=== PATIENT | female | born 1985 | race Caucasian/White ===

== ENCOUNTER 2017-01-03 13:07 | Emergency (ER) | payer OTHER ==
[~2017-01-03] VITALS: Ht 162.6 cm; Wt 117.5 kg
[2017-01-03 13:11] VITALS: BP 143/90
--- NOTE | 2017-01-03 16:44 | NUR ---
PT TAKEN TO BED 4.
--- NOTE | 2017-01-03 16:50 | NUR ---
Patient being evaluated by physician at bedside.
[2017-01-03] MEDS: NACL 0.9% 1,000 ML IV ONE (17:00)
--- NOTE | 2017-01-03 17:00 | NUR ---
PATIENT PRESENTS TO ED WITH DIZZINESS . PT STATES DENIES TRAUMA] . DENIES N/V/D; SKIN IS PINK/WARM/DRY; AAOX4 WITH EVEN AND STEADY GAIT; LUNGS CLEAR BL; HR EVEN AND REGULAR; PT DENIES ANY FEVER, CP, SOB, OR COUGH AT THIS TIME; PATIENT STATES PAIN OF 0/10 AT THIS TIME; VSS; PATIENT POSITIONED FOR COMFORT; HOB ELEVATED; BEDRAILS UP X2; BED DOWN. ER MD MADE AWARE OF PT STATUS.
[2017-01-03 17:55] LABS: BASOPHILS # (AUTO) 0.1 K/uL (0.00-0.22); BASOPHILS % (AUTO) 1.4 % (0.0-2.0); EOSINOPHILS # (AUTO) 0.2 K/uL (0-0.4); EOSINOPHILS % (AUTO) 2.1 % (0.0-4.0); HEMATOCRIT 40.4 % (36-48); HEMOGLOBIN 13.2 g/dL (12.0-16.0); LYMPHOCYTES # (AUTO) 2.8 K/uL (2.5-16.5); LYMPHOCYTES % (AUTO) 29.6 % (20.5-51.1); MEAN CORPUSCULAR HEMOGLOBIN 26 pg (27-31); MEAN CORPUSCULAR HGB CONC 33 g/dL (33-37); MEAN CORPUSCULAR VOLUME 80 fL (80-94); MONOCYTES # (AUTO) 0.5 K/uL (0.8-1.0); MONOCYTES % (AUTO) 4.8 % (1.7-9.3); NEUTROPHILS % (AUTO) 62.1 % (42.2-75.2); PLATELET COUNT (AUTO) 276 K/uL (140-450); RED BLOOD CELL COUNT(AUTO) 5.04 MIL/uL (4.20-5.40); RED CELL DISTRIBUTION WIDTH 14.8 % (11.6-13.7); WHITE BLOOD COUNT (AUTO) 9.6 K/uL (4.8-10.8)
[2017-01-03] MEDS: KETOROLAC 30 MG/ML VIAL IVP ONE (18:01)
[2017-01-03 18:16] LABS: ALBUMIN 3.8 g/dL (3.4-5.0); ANION GAP 11.6 (8-16); CARBON DIOXIDE 30.6 mmol/L (21-32); CREATININE 0.6 mg/dL (0.6-1.3); POTASSIUM 4.2 mmol/L (3.5-5.1); TOTAL BILIRUBIN 0.3 mg/dL (0.0-1.0); TOTAL PROTEIN, SERUM 8.5 g/dL (6.4-8.2)
[2017-01-03 18:18] LABS: PARTIAL THROMBOPLASTIN TIME 29.4 secs (22-35.6); PROTHROMBIN TIME 9.9 secs (10.8-13.4)
--- NOTE | 2017-01-03 19:03 | NUR ---
Patient discharged with v/s stable. Written and verbal after care instructions given and explained. Patient alert, oriented and verbalized understanding of instructions. Ambulatory with steady gait. All questions addressed prior to discharge. ID band removed. Patient advised to follow up with PMD. Rx of MOTRIN/MECLIZINE given. Patient educated on indication of medication including possible reaction and side effects. Opportunity to ask questions provided and answered.
[2017-01-03 19:04] VITALS: BP 138/81
== END 2017-01-03 19:03 | disposition home or self-care (01) ==
LOC: MED 13:07
DX: R07.89 Other chest pain (principal); R42 Dizziness and giddiness
CPT/HCPCS: 36415; 70450; 71010; 80053; 84484; 85025; 85610; 85730; 93005; 96361; 96374; 99285; J1885; J7030

== ENCOUNTER 2019-03-03 06:51 | Inpatient (IN) | payer OTHER ==
[~2019-03-03] VITALS: Ht 160 cm; Wt 112.9 kg
[2019-03-03 07:00] VITALS: BP 128/81
--- NOTE | 2019-03-03 07:00 | NUR ---
TO BED # 09 AMBULATORY
--- NOTE | 2019-03-03 07:07 | NUR ---
33 Y FEMALE C/O EPIGASTRIC PAIN FOR 10 DAYS WITH N/V. PATIENT STATES SHE SAW HER PCP ON TUESDAY, US WAS PERFORMED, GALLSTONES PRESENT. PATIENT STATES SHE CANT TAKE THE PAIN, 05/03. VSS. AA0X4. BED IS DOWN, LOCKED, BED RAIL X 1, ERMD TO SEE PT.
--- NOTE | 2019-03-03 07:13 | NUR ---
PT UNABLE TO GIVE URINE AT THIS TIME
--- NOTE | 2019-03-03 07:35 | NUR ---
dr magdaleno at bedside
[2019-03-03] MEDS ORDERED: ONDANSETRON 4 MG/2 ML VIAL IVP ONE (07:40)
[2019-03-03] MEDS ORDERED: MORPHINE SULFATE 4 MG/ML SYR IVP ONE ×2 (07:40→09:55)
[2019-03-03] MEDS ORDERED: NACL 0.9% 1,000 ML IV ONE (07:40)
--- NOTE | 2019-03-03 08:11 | NUR ---
us at bedside
[2019-03-03 08:18] LABS: BASOPHILS # (AUTO) 0.1 K/uL (0.00-0.22); BASOPHILS % (AUTO) 0.7 % (0.0-2.0); EOSINOPHILS # (AUTO) 0.2 K/uL (0-0.4); EOSINOPHILS % (AUTO) 2.3 % (0.0-4.0); HEMATOCRIT 31.8 % (36-48); HEMOGLOBIN 9.9 g/dL (12.0-16.0); LYMPHOCYTES # (AUTO) 1.8 K/uL (2.5-16.5); LYMPHOCYTES % (AUTO) 22.7 % (20.5-51.1); MEAN CORPUSCULAR HEMOGLOBIN 21 pg (27-31); MEAN CORPUSCULAR HGB CONC 31 g/dL (33-37); MEAN CORPUSCULAR VOLUME 68.1 fL (80-94); MONOCYTES # (AUTO) 0.4 K/uL (0.8-1.0); MONOCYTES % (AUTO) 4.8 % (1.7-9.3); NEUTROPHILS # (AUTO) 5.5 K/uL (1.8-7.7); NEUTROPHILS % (AUTO) 69.5 % (42.2-75.2); PLATELET COUNT (AUTO) 367 K/uL (140-450); RED BLOOD CELL COUNT(AUTO) 4.67 MIL/uL (4.20-5.40); RED CELL DISTRIBUTION WIDTH 17.6 % (11.6-13.7); WHITE BLOOD COUNT (AUTO) 7.9 K/uL (4.8-10.8)
[2019-03-03 08:30] LABS: ANION GAP 14.3 (8-16); APPEARANCE,URINE CLOUDY (CLEAR); BILIRUBIN,URINE NEGATIVE (NEGATIVE); BLOOD, URINE 1+ (NEGATIVE); CARBON DIOXIDE 27.3 mmol/L (21-32); COLOR,URINE YELLOW (YELLOW); CREATININE 0.8 mg/dL (0.6-1.3); LEUKOCYTE ESTERASE ,URINE NEGATIVE (NEGATIVE); NITRITE, URINE NEGATIVE (NEGATIVE); PH,URINE 7.5 (5.0-9.0); POTASSIUM 3.6 mmol/L (3.5-5.1); UGLUCOSE NEGATIVE (NEGATIVE)
[2019-03-03 08:36] LABS: TOTAL BILIRUBIN 0.4 mg/dL (0.0-1.0)
[2019-03-03 09:02] LABS: RBC,URINE 0-5 /HPF (0-5); WBC,URINE 0-5 /HPF (0-5)
--- NOTE | 2019-03-03 09:07 | NUR ---
PT SLEEPING. LIGHTS TURNED OFF FOR COMFORT. RR EVEN AND UNLABORED.
--- NOTE | 2019-03-03 10:00 | NUR ---
pt c/o 05/03 pain. additional 4 mg morphine ivp administered
--- NOTE | 2019-03-03 10:15 | NUR ---
RECEIVED REPORT FROM ER NURSE. PATIENT IS STABLE UPON ENDORSEMENT. PATIENT IS ON ROOM AIR, NO S/S OF RESPIRATORY DISTRESS. ADMIT TO FLOOR VITAL SIGNS ARE PULSE OX: 100% RA, MS 71, TEMP 97.0, BP 126/64. MRSA SWAB COLLECTED FROM NARES. ADMISSION ASSESSMENT HAS BEEN IMPLEMENTED. WILL CONTINUE TO MONITOR
--- NOTE | 2019-03-03 10:20 | NUR ---
Patient will be admitted to care of [facility]. Admited to [facility]. Will go to room 119A. Belongings list completed. Report to RICH MOE.
[2019-03-03] MEDS ORDERED: ALBUTEROL 0.083% 2.5 MG/3 ML NEBU INH PRN (10:50)
[2019-03-03] MEDS ORDERED: ACETAMINOPHEN 325 MG TAB PO PRN (10:50)
[2019-03-03] MEDS ORDERED: POTASSIUM CHLORIDE 10 MEQ TABER PO PRN (10:50)
[2019-03-03] MEDS ORDERED: HYDROcodone/APAP 5/325 MG 1 TAB TAB PO PRN (10:50)
[2019-03-03] MEDS ORDERED: guaiFENesin DM 200/20 MG-10 ML 10 ML UDC PO PRN (10:50)
[2019-03-03] MEDS ORDERED: diphenhydrAMINE 50 MG/ML VIAL IVP PRN (10:50)
[2019-03-03] MEDS ORDERED: ZOLPIDEM 5 MG TAB PO PRN (10:50)
[2019-03-03] MEDS ORDERED: IPRATROPIUM 0.02% 0.5 MG/2.5 ML NEBU INH PRN (10:50)
[2019-03-03] MEDS ORDERED: MORPHINE SULFATE 4 MG/ML SYR IVP PRN (10:50)
[2019-03-03] MEDS ORDERED: DOCUSATE SODIUM 250 MG GELCAP PO PRN (10:50)
[2019-03-03] MEDS ORDERED: MAGNESIUM OXIDE 400 MG TAB PO PRN (10:50)
[2019-03-03] MEDS ORDERED: ACETAMINOPHEN 650 MG SUPP RC PRN (10:50)
[2019-03-03] MEDS ORDERED: SODIUM PHOSPHATE 118 ML ENEM RC PRN (10:50)
[2019-03-03] MEDS ORDERED: MAG SULF 2000 MG/WATER PREMIX 50 ML IV PRN (10:50)
[2019-03-03] MEDS ORDERED: LORazepam 2 MG/ML VIAL IVP PRN (10:50)
[2019-03-03] MEDS ORDERED: BISACODYL 10 MG SUPP RC PRN (10:50)
[2019-03-03] MEDS ORDERED: MORPHINE SULFATE 2 MG/ML SYR IVP PRN (10:50)
[2019-03-03] MEDS ORDERED: cloNIDine 0.1 MG TAB PO PRN (10:50)
[2019-03-03] MEDS ORDERED: POTASSIUM CHLORIDE 40 MEQ, LIDOCAINE 1% 25 MG in NACL 0.9% 250 ML IV PRN (10:50)
[2019-03-03] MEDS ORDERED: ALUMINUM HYD/MAG/SIMETHICONE 30 ML UDC PO PRN (10:50)
[2019-03-03] MEDS: NACL 0.9% 1,000 ML IV SCH (12:00)
[2019-03-03] MEDS: FAMOTIDINE 20 MG/2 ML VIAL IV SCH (12:23)
[2019-03-03] MEDS: ONDANSETRON 4 MG/2 ML VIAL IVP PRN ×2 (12:24→21:10)
[2019-03-03] MEDS: HYDROcodone/APAP 5/325 MG 1 TAB TAB PO PRN ×2 (12:24→21:07)
--- NOTE | 2019-03-03 12:30 | NUR ---
ADMINISTERED PAIN MEDICATION FOR PAIN 01/01. PATIENTS VITAL SIGNS WERE WNL PRIOR TO ADMINISTRATION. WILL REASSESS IN ONE HOUR AND CONTINUE TO MONITOR. PATIENT IS RESTING IN BED WITH NO S/S OF RESPIRATORY DISTRESS. FAMILY IS AT BEDSIDE.
--- NOTE | 2019-03-03 14:13 | NUR ---
WAS INFORMED THAT PATIENT HAS A NUCLEAR SCAN SET TO TAKE PLACE AROUND 6PM. INFORMED PATIENT THAT SHE IS TO BE NPO UNTIL THE SCAN IS COMPLETE. INFORMED PATIENT THAT MORPHINE SHOULD BE WITHHELD UNTIL AFTER THE SCAN. PATIENT VERBALIZED UNDERSTANDING. PATIENT IS RESTING QUIETLY WITH FAMILY AT BEDSIDE.
--- NOTE | 2019-03-03 14:20 | NUR ---
PATIENT TO BE TAKEN FOR CT ABD/PELVIS WITHOUT CONTRAST. WILL CONTINUE TO MONITOR WHEN PATIENT RETURNS ON UNIT.
--- NOTE | 2019-03-03 14:35 | NUR ---
PATIENT BACK ON UNIT FROM CT SCAN. NO DISTRESS NOTED. WILL CONTINUE TO MONITOR.
[2019-03-03 16:00] VITALS: BP 119/64
--- NOTE | 2019-03-03 16:14 | NUR ---
PATIENT IS SLEEPING WITH FAMILY AT BEDSIDE. NO S/S OF RESPIRATORY DISTRESS.
--- NOTE | 2019-03-03 19:10 | NUR ---
RECEIVED REPORT FROM AM NURSE, PATIENT IS IN HIDA SCAN.
--- NOTE | 2019-03-03 19:10 | NUR ---
ENDORSED PATIENT TO SENIOR GAMES TECHNICIAN NURSE. PATIENT IS CURRENTLY IN RADIOLOGY FOR NUCLEAR SCAN. ENDORSED ALL PERTINENT INFORMATION TO SENIOR GAMES TECHNICIAN NURSE.
[2019-03-03] MEDS ORDERED: MORPHINE SULFATE 2 MG/ML SYR ONE (19:37)
[2019-03-03 20:00] VITALS: BP 125/64
[2019-03-03] MEDS ORDERED: MORPHINE SULFATE 2 MG/ML SYR IVP ONE (20:10)
--- NOTE | 2019-03-03 20:30 | NUR ---
PT BACK FROM [employer].
--- NOTE | 2019-03-03 22:00 | NUR ---
PT IS RESTING COMFORTABLY, NO SIGNS OF DISTRESS.
--- NOTE | 2019-03-03 23:20 | NUR ---
DR HANKINS PAGE AGAIN AND RETURN CALL IMMEDIATELY WITH NO ORDER.
[2019-03-04] VITALS: BP 118/64
--- NOTE | 2019-03-04 | NUR ---
INSTRUCTED NOT TO EAT OR DRINK AFTER MIDNIGHT
[2019-03-04] MEDS: NACL 0.9% 1,000 ML IV SCH ×2 (03:30→19:59)
--- NOTE | 2019-03-04 04:00 | NUR ---
SLEEPING WHEN CHECKED.
--- NOTE | 2019-03-04 07:06 | NUR ---
PATIENT HAS BEEN SCREENED AND CATEGORIZED HIGH NUTRITION RISK. PATIENT WILL BE SEEN WITHIN 1-2 DAYS OF ADMISSION. 03/04/19-03/05/19 ARUNA MORALES MS, RDN
--- NOTE | 2019-03-04 07:15 | NUR ---
RECEIVED ENDORSEMENT FROM VACUUM SYSTEM TESTER NURSE. PATIENT IS AAOX4, ZAMBIAN SPEAKING. RESPIRATIONS ARE EVEN AND UNLABORED ON ROOM AIR. PATIENT DENIES ANY PAIN AT THIS TIME. LEFT AC 20G IV INTACT, PATENT, AND INFUSING IVF. PLAN OF CARE WAS REVIEWED WITH PATIENT, PATIENT VERBALIZED UNDERSTANDING. SAFETY MEASURES IN PLACE, CALL LIGHT WITHIN REACH.
[2019-03-04 08:00] VITALS: BP 130/64
[2019-03-04 08:09] LABS: BASOPHILS % (AUTO) 0.6 % (0.0-2.0); EOSINOPHILS # (AUTO) 0.2 K/uL (0-0.4); EOSINOPHILS % (AUTO) 4.7 % (0.0-4.0); HEMOGLOBIN 8.9 g/dL (12.0-16.0); LYMPHOCYTES # (AUTO) 2.2 K/uL (2.5-16.5); LYMPHOCYTES % (AUTO) 46.8 % (20.5-51.1); MEAN CORPUSCULAR HEMOGLOBIN 21 pg (27-31); MEAN CORPUSCULAR HGB CONC 31 g/dL (33-37); MONOCYTES # (AUTO) 0.4 K/uL (0.8-1.0); MONOCYTES % (AUTO) 8.4 % (1.7-9.3); NEUTROPHILS # (AUTO) 1.9 K/uL (1.8-7.7); NEUTROPHILS % (AUTO) 39.5 % (42.2-75.2); PLATELET COUNT (AUTO) 301 K/uL (140-450); RED BLOOD CELL COUNT(AUTO) 4.19 MIL/uL (4.20-5.40); RED CELL DISTRIBUTION WIDTH 17.3 % (11.6-13.7); WHITE BLOOD COUNT (AUTO) 4.7 K/uL (4.8-10.8)
[2019-03-04 08:32] LABS: ALBUMIN 3.2 g/dL (3.4-5.0); ANION GAP 11.7 (8-16); CARBON DIOXIDE 26.2 mmol/L (21-32); CREATININE 0.6 mg/dL (0.6-1.3); POTASSIUM 3.9 mmol/L (3.5-5.1); TOTAL BILIRUBIN 0.4 mg/dL (0.0-1.0)
[2019-03-04] MEDS: ENOXAPARIN 40 MG/0.4 ML SYR SUBQ SCH (09:13)
--- NOTE | 2019-03-04 09:13 | NUR ---
ADMINISTERED SCHEDULED MEDICATION. PATIENT TOLERATED WELL. PATIENT DENIES ANY PAIN AT THIS TIME. NO OTHER NEEDS AT THIS TIME, WILL CONTINUE TO MONITOR.
--- NOTE | 2019-03-04 11:36 | NUR ---
PATIENT RESTING IN BED. FAMILY IS PRESENT AT THE BEDSIDE. PATIENT DENIES ANY PAIN. NO OTHER NEEDS AT THIS TIME, WILL CONTINUE TO MONITOR.
[2019-03-04] MEDS: HYDROcodone/APAP 5/325 MG 1 TAB TAB PO PRN ×2 (12:01→20:01)
[2019-03-04] MEDS: LEVOFLOXACIN 500 MG/D5W PREMIX 100 ML IV SCH (12:01)
[2019-03-04] MEDS: FAMOTIDINE 20 MG/2 ML VIAL IV SCH (12:01)
--- NOTE | 2019-03-04 12:01 | NUR ---
ADMINISTERED SCHEDULED MEDICATIONS. PATIENT TOLERATED WELL. NO OTHER NEEDS AT THIS TIME, WILL CONTINUE TO MONITOR.
[2019-03-04] MEDS: metroNIDAZOLE 500 MG/NS PREMIX 100 ML IV SCH ×2 (13:17→20:00)
--- NOTE | 2019-03-04 13:17 | NUR ---
ADMINISTERED SCHEDULED MEDICATION. PATIENT TOLERATED WELL. NO OTHER NEEDS AT THIS TIME, WILL CONTINUE TO MONITOR.
--- NOTE | 2019-03-04 15:26 | NUR ---
PATIENT SLEEPING, VISIBLE RISE AND FALL OF CHEST. NO OTHER NEEDS AT THIS TIME, WILL CONTINUE TO MONITOR.
[2019-03-04 16:00] VITALS: BP 114/64
--- NOTE | 2019-03-04 17:56 | NUR ---
PATIENT RESTING IN BED. PATIENT DENIES ANY PAIN. NO OTHER NEEDS AT THIS TIME, WILL CONTINUE TO MONITOR.
--- NOTE | 2019-03-04 19:27 | NUR ---
ENDORSED TO EXTRUSION PRESS ADJUSTER NURSE FOR CONTINUITY OF CARE. PATIENT IS STABLE AT THIS TIME.
--- NOTE | 2019-03-04 19:28 | NUR ---
RECEIVED BEDSIDE REPORT FROM ULISESSDLUIS BECKETT. A/O X4 PERSON PLACE TIME AND EVENT. DISCUSSED PLAN OF CARE. VERBALIZED UNDERSTANDING. MAKES NEEDS KNOWN. ROOM AIR. NO SIGNS OF RESP DISTRESS. STD PRECAUTIONS. AMBULATORY. STEADY GAIT. SKIN IS INTACT. RAC 20G INFUSING NS @60. PATENT AND INTACT. BED IN LOWEST POSITION. CALL LIGHT WITHIN REACH. WILL CONTINUE TO MONITOR.
--- NOTE | 2019-03-04 21:00 | NUR ---
IV LEAKING. REMOVED R AC 20 G. CANULA INTACT. NO SIGNS OF DISTRESS. INSERTED NEW IV L FA 20G. TOLERATED WELL. WILL CONTINUE TO MONITOR.
--- NOTE | 2019-03-04 23:13 | NUR ---
PT RESTING IN BED WATCHING TV. NO SIGNS OF DISTRESS. IV INFUSING WELL. WILL CONTINUE TO MONITOR.
[2019-03-05] VITALS: BP 134/60
--- NOTE | 2019-03-05 01:43 | NUR ---
PT IS SLEEPING IN BED NO SIGNS OF RESP DISTRESS. EASILY AROUSABLE. EVEN UNLABORED CHEST RISE. CALL LIGHT WITHIN REACH. WILL CONTINUE TO MONITOR.
--- NOTE | 2019-03-05 03:30 | NUR ---
PT SHOWERED. AMBULATED STEADY GAIT. BACK IN BED. RECONNECTED BACK TO IV PUMP. NO SIGNS OF DISTRESS. WILL CONTINUE TO MONITOR.
[2019-03-05] MEDS: metroNIDAZOLE 500 MG/NS PREMIX 100 ML IV SCH ×3 (04:54→21:00)
--- NOTE | 2019-03-05 05:06 | NUR ---
PT SLEEPING NO SIGNS OF DISTRESS. ABLE TO MAKE NEEDS KNOWN. CALL LIGHT WITHIN REACH. WILL CONTINUE TO MONITOR.
--- NOTE | 2019-03-05 06:22 | NUR ---
WILL ENDORSE PT TO DAYSHIFT RN FOR CONTINUITY OF CARE. PT IS IN STABLE CONDITION. BED IN LOWEST POSITION. CALL LIGHT WITHIN REACH. NO SIGNS OF DISTRESS.
--- NOTE | 2019-03-05 07:15 | NUR ---
RECEIVED PT FROM BEEF FARMER NURSE, PT IS AWAKE AND LYING ON THE BED WITH SIDE RAILS UP AND CALL LIGHT WITHIN REACH, IV LINE ON THE LEFT FA G. 20 WITH IVF OF NS INFUSING AT 60ML/HR, PT DENIES PAIN AND NO SIGN OF DISTRESS NOTED. WILL MONITOR PT.
[2019-03-05 07:16] LABS: BASOPHILS % (AUTO) 0.8 % (0.0-2.0); EOSINOPHILS # (AUTO) 0.2 K/uL (0-0.4); EOSINOPHILS % (AUTO) 3.2 % (0.0-4.0); HEMATOCRIT 29.3 % (36-48); LYMPHOCYTES # (AUTO) 1.9 K/uL (2.5-16.5); LYMPHOCYTES % (AUTO) 33.4 % (20.5-51.1); MEAN CORPUSCULAR HEMOGLOBIN 21 pg (27-31); MEAN CORPUSCULAR HGB CONC 31 g/dL (33-37); MEAN CORPUSCULAR VOLUME 68.3 fL (80-94); MONOCYTES # (AUTO) 0.3 K/uL (0.8-1.0); MONOCYTES % (AUTO) 5.9 % (1.7-9.3); NEUTROPHILS # (AUTO) 3.2 K/uL (1.8-7.7); NEUTROPHILS % (AUTO) 56.7 % (42.2-75.2); PLATELET COUNT (AUTO) 318 K/uL (140-450); RED CELL DISTRIBUTION WIDTH 17.3 % (11.6-13.7); WHITE BLOOD COUNT (AUTO) 5.6 K/uL (4.8-10.8)
[2019-03-05] MEDS ORDERED: ROCURONIUM 50 MG/5 ML VIAL IV ONE (07:25)
[2019-03-05] MEDS ORDERED: NEOSTIGMINE 1:1000 10 MG/10 ML VIAL ONE (07:25)
[2019-03-05] MEDS ORDERED: KETOROLAC 30 MG/ML VIAL ONE (07:25)
[2019-03-05] MEDS ORDERED: GLYCOPYRROLATE 0.2 MG/ML VIAL ONE (07:25)
[2019-03-05] MEDS ORDERED: ONDANSETRON 4 MG/2 ML VIAL ONE (07:25)
[2019-03-05] MEDS ORDERED: BUPIVACAINE-MPF/EPI 0.25% 30 ML VIAL INJ ONE (07:25)
[2019-03-05] MEDS ORDERED: DEXAMETHASONE 4 MG/ML VIAL ONE (07:25)
[2019-03-05] MEDS ORDERED: ePHEDrine 50 MG/ML VIAL ONE (07:25)
[2019-03-05] MEDS ORDERED: PROPOFOL 200 MG/20 ML VIAL IV ONE (07:25)
[2019-03-05] MEDS ORDERED: SUCCINYLCHOLINE CHLORIDE 200 MG/10 ML VIAL IVP ONE (07:25)
[2019-03-05] MEDS ORDERED: DESFLURANE 240 ML BTL INH ONE (07:25)
[2019-03-05 07:30] VITALS: BP 135/80
--- NOTE | 2019-03-05 07:30 | NUR ---
PT IS OFF THE UNIT FOR A PROCEDURE, LAPAROSCOPIC CHOLECYSTECTOMY POSSIBLE OPEN, V/S CHECKED AND BP IS 135/80, PULSE IS 73, O2 SATURATION IS 96%, RESPIRATION IS 18/MIN AND TEMP. IS 98.1, NO SIGN OF DISTRESS NOTED, PT IS STABLE.
[2019-03-05] MEDS ORDERED: MIDAZOLAM 2 MG/2 ML VIAL ONE (07:45)
[2019-03-05] MEDS ORDERED: fentaNYL 0.05 MG/ML VIAL ONE (07:46)
--- NOTE | 2019-03-05 07:50 | NUR ---
PT NOT IN ROOM AT THIS TIME, WILL ASSESS PT AT A LATER TIME FOR PRN BREATHING TX.
[2019-03-05] MEDS ORDERED: HYDROmorphone 1 MG/ML AMP IVP PRN (08:15)
[2019-03-05] MEDS ORDERED: ONDANSETRON 4 MG/2 ML VIAL IVP PRN (08:15)
[2019-03-05] MEDS: ENOXAPARIN 40 MG/0.4 ML SYR SUBQ SCH (09:00)
[2019-03-05] MEDS: HYDROmorphone PFS 2 MG/ML SYR ONE ×4 (09:25→09:55)
--- NOTE | 2019-03-05 10:20 | NUR ---
PT CAME BACK TO ROOM NOW FROM OR, BP IS 107/53, PULSE IS 72, O2 SATURATION IS 97%, TEMPERATURE IS 98.4, RESPIRATION IS EVEN AND NO SIGN OF DISTRESS NOTED. WILL MONITOR PT.
[2019-03-05] MEDS: LEVOFLOXACIN 500 MG/D5W PREMIX 100 ML IV SCH (10:54)
[2019-03-05] MEDS: HYDROcodone/APAP 5/325 MG 1 TAB TAB PO PRN ×2 (10:54→15:05)
[2019-03-05] MEDS: FAMOTIDINE 20 MG/2 ML VIAL IV SCH (10:54)
--- NOTE | 2019-03-05 10:54 | NUR ---
PT IS AWAKE AND V/S CHECKED, BP IS 118/65, PULSE IS 82, O2 SATURATION IS 97%, ORAL PAIN MEDICATION WAS GIVEN FOR C/O PAIN RATE OF 9/10, IVPB AND IV PUSH MEDICATIONS WERE GIVEN TO PT AND TOLERATED IT. WILL MONITOR PT.
[2019-03-05] MEDS: NACL 0.9% 1,000 ML IV SCH ×2 (12:50→21:00)
--- NOTE | 2019-03-05 13:45 | NUR ---
PT IS AWAKE AND ;LYING ON THE BED WITH FAMILY ON THE BEDSIDE, IV MEDICATION WAS GIVEN VIA PIGGYBACK. WILL MONITOR PT.
--- NOTE | 2019-03-05 15:05 | NUR ---
PT IS AWAKE AND C/O PAIN RATE OF 9/10. ORAL PAIN MEDICATION WAS GIVEN TO PT, PARAMETERS CHECKED, BP IS 120/65, PULSE IS 92, O2 SATURATION IS 98%, WILL RE-ASSESS PAIN AND MONITOR PT.
[2019-03-05 16:00] VITALS: BP 125/65
[2019-03-05] MEDS: HYDROmorphone 1 MG/ML AMP IVP PRN ×2 (17:26→22:06)
--- NOTE | 2019-03-05 19:38 | NUR ---
ENDORSED PT TO TEST MANAGER NURSE FOR CONTINUITY OF CARE.
--- NOTE | 2019-03-05 19:39 | NUR ---
RECEIVED PT FROM DAY RN, PT IS LISA X4 LYING ON THE BED WITH SIDE RAILS UP AND CALL LIGHT WITHIN REACH, IV LINE ON THE LEFT FA G. 20 WITH IVF OF NS INFUSING AT 60ML/HR, PT S/P LAP SANDRA WITH 4 INCISION COVERED WITH BAND-AID C/D/I.PT IS AMBULATORY. PLAN OF CARE DISCUSSED WITH PT AND MOTHER. CALL LIGHT IS WITHIN REACH. WILL ROUND FREQUENTLY.
[2019-03-05] MEDS: MORPHINE SULFATE 4 MG/ML SYR IVP PRN (20:58)
--- NOTE | 2019-03-05 21:00 | NUR ---
ASHLEE MEDICATION GIVEN. ADMINISTERED MORPHINE FOR PAIN. ALL NEEDS MET AT THIS TIME. WILL CONTINUE TO MONITOR.
--- NOTE | 2019-03-05 22:06 | NUR ---
ADMINISTERED PAIN MEDICATION FOR PAIN 04/03. ALL SAFETY MEASURES ARE IN PLACE. MOTHER IS AT BEDSIDE. WILL CONTINUE TO MONITOR.
[2019-03-05 23:54] VITALS: BP 121/70
--- NOTE | 2019-03-05 23:56 | NUR ---
VITAL SIGNS ARE WITHIN NORMAL LIMITS. ALL NEEDS MET AT THIS TIME. CALL LIGHT IS WITHIN REACH. WILL CONTINUE TO MONITOR.
--- NOTE | 2019-03-06 00:35 | NUR ---
RECEIVED REPORT FROM NURSE LAGOS FOR CONTINUITY OF CARE. PATIENT IS SLEEPING RESPIRATION EVEN UNLABORED ON ROOM AIR. MOTHER AT BEDSIDE. WILL CONTINUE TO MONITOR.
--- NOTE | 2019-03-06 00:38 | NUR ---
GAVE ENDORSEMENT TO CATHERINE MOE. PT IN STABLE CONDITION.
[2019-03-06] MEDS: MORPHINE SULFATE 4 MG/ML SYR IVP PRN (00:56)
--- NOTE | 2019-03-06 02:00 | NUR ---
GAVE ENDORSEMENT TO KATE WATKINS PT IN STABLE CONDITION.
--- NOTE | 2019-03-06 02:05 | NUR ---
RECEIVED PT FROM CATHERINE RN PT IS AAOX4 S/P MARK FLORES 03/05/19 ABD 4 SMALL SURGICAL INCISION COVERAGE WITH A BAND AID DRY AND INTACT IV ON LEFT ARM INFUSING WELL RELATIVE AT BED SIDE INITIAL ASSESSMENT DONE
--- NOTE | 2019-03-06 04:25 | NUR ---
report given to seth for continuity of care
[2019-03-06] MEDS: metroNIDAZOLE 500 MG/NS PREMIX 100 ML IV SCH ×2 (04:57→13:00)
--- NOTE | 2019-03-06 05:05 | NUR ---
RECEIVED REPORT FROM KATE.PT IS SLEEPING W/O S/S OF ANY DISTRESS.IVF INFUSING WELL.WILL CONTINUE MONITORING.FLAGYL IVPG STARTED AND INFUSING WELL.
[2019-03-06] MEDS: HYDROmorphone 1 MG/ML AMP IVP PRN ×2 (05:34→10:26)
--- NOTE | 2019-03-06 05:53 | NUR ---
HAD C/O PAIN DILAUDID 1MG IVP GIVEN.JF=835/60
[2019-03-06 07:08] LABS: ALBUMIN 3.3 g/dL (3.4-5.0); ANION GAP 11.2 (8-16); CARBON DIOXIDE 27.4 mmol/L (21-32); CREATININE 0.6 mg/dL (0.6-1.3); POTASSIUM 3.6 mmol/L (3.5-5.1); TOTAL BILIRUBIN 0.4 mg/dL (0.0-1.0)
[2019-03-06 07:23] LABS: BASOPHILS % (AUTO) 0.2 % (0.0-2.0); EOSINOPHILS % (AUTO) 0.2 % (0.0-4.0); HEMATOCRIT 28.3 % (36-48); HEMOGLOBIN 8.8 g/dL (12.0-16.0); LYMPHOCYTES # (AUTO) 1.6 K/uL (2.5-16.5); LYMPHOCYTES % (AUTO) 19.6 % (20.5-51.1); MEAN CORPUSCULAR HEMOGLOBIN 21 pg (27-31); MEAN CORPUSCULAR HGB CONC 31 g/dL (33-37); MEAN CORPUSCULAR VOLUME 68.5 fL (80-94); MONOCYTES # (AUTO) 0.5 K/uL (0.8-1.0); MONOCYTES % (AUTO) 6.3 % (1.7-9.3); NEUTROPHILS # (AUTO) 5.8 K/uL (1.8-7.7); NEUTROPHILS % (AUTO) 73.7 % (42.2-75.2); PLATELET COUNT (AUTO) 326 K/uL (140-450); RED BLOOD CELL COUNT(AUTO) 4.13 MIL/uL (4.20-5.40); RED CELL DISTRIBUTION WIDTH 17.3 % (11.6-13.7); WHITE BLOOD COUNT (AUTO) 7.9 K/uL (4.8-10.8)
--- NOTE | 2019-03-06 07:29 | NUR ---
REPORT GIVEN TO AM RN.PT'S CONDITION IS STABLE.NO C/O PAIN NOW.
--- NOTE | 2019-03-06 07:34 | NUR ---
RECEIVED PT FROM AXLE BEARING POLISHER NURSE, PT IS AWAKE AND IV LINE ON THE LEFT FA G.20 WITH NS INFUSING AST 60ML/HR, SIDE RAILS ARE UP AND CALL ,LIGHT WITHIN REACH, O2 2L NC IN PLACE, PT DENIES PAIN AND NO SIGN OF DISTRESS NOTED. WILL MONITOR PT.
[2019-03-06 08:00] VITALS: BP 116/62
[2019-03-06] MEDS: ENOXAPARIN 40 MG/0.4 ML SYR SUBQ SCH (09:07)
[2019-03-06] MEDS: LEVOFLOXACIN 500 MG/D5W PREMIX 100 ML IV SCH (10:25)
--- NOTE | 2019-03-06 10:25 | NUR ---
PT IS AWAKE AND FAMILY ON THE BEDSIDE, MEDICATIONS WERE GIVEN VIA IV PUSH AND PIGGYBACK, PT TOLERATED IT. WILL MONITOR PT.
[2019-03-06] MEDS: ONDANSETRON 4 MG/2 ML VIAL IVP PRN (12:06)
[2019-03-06] MEDS: FAMOTIDINE 20 MG/2 ML VIAL IV SCH (12:07)
[2019-03-06] MEDS ORDERED: ONDA4TAB PO (13:54)
[2019-03-06] MEDS ORDERED: DOCU-299 PO (13:54)
[2019-03-06] MEDS ORDERED: ACET-5629 PO (13:56)
--- NOTE | 2019-03-06 14:50 | NUR ---
PT REFUSED TO HAVE A PICTURE TAKEN ON THE SURGICAL INCISIONS, FAMILY ON THE BEDSIDE.
--- NOTE | 2019-03-06 15:04 | NUR ---
DISCHARGED PT TO HOME VIA WHEELCHAIR WITH MOTHER, DISCHARGE INSTRUCTIONS AND PRESCRIPTIONS WERE GIVEN TO PT AND VERBALIZED UNDERSTANDING, IV LINE AND ARM BAND REMOVED. PT IS STABLE AT THIS TIME.
--- NOTE | 2019-03-06 15:04 | NUR ---
DISCHARGED PT VIA WHEELCHAIR WITH MOTHER, DISCHARGE INSTRUCTIONS AND PRESCRIPTIONS WERE GIVEN TO PT AND VERBALIZED UNDERSTANDING, IV LINE AND ARM BAND REMOVED. PT IS STABLE AT THIS TIME.
--- NOTE | 2019-03-06 16:16 | NUR ---
[facility] F/U APPT Called & made f/u appt w pt's clinic [facility] in [place], ph [phone], for Tuesday @ 11am, address: [address] [place] [address]. Pt has dc'd already, called pt's # on face sheet & wrong# [phone]. Called pt's Leonid Sheldon ph [phone], no answer. left note to attempt to call pt tomorrow.
== END 2019-03-06 15:05 | disposition home or self-care (01) | DRG 263 ==
LOC: MED 06:51 → MTU 10:12
PROVIDERS: ADMIT Internal Medicine Pulmonary Disease; ATTEND Internal Medicine Pulmonary Disease
PROC: 0FT44ZZ Resection of Gallbladder, Percutaneous Endoscopic Approach (ICD-10-PCS; principal; 2019-03-05 07:30)
DX: K80.12 Calculus of gallbladder with acute and chronic cholecystitis without obstruction (principal); K76.0 Fatty (change of) liver, not elsewhere classified; E66.01 Morbid (severe) obesity due to excess calories; Z68.41 Body mass index [BMI] 40.0-44.9, adult; R73.03 Prediabetes; Z90.49 Acquired absence of other specified parts of digestive tract
CPT/HCPCS: 36415; 76705; 78445; 80053; 81001; 82150; 82374; 83690; 85025; 86886; 86900; 86901; 87081; 87086; 88304; 96361; 96374; 96375; 96376; 99285; A9510; J0330; J1100; J1170; J1650; J1885; J1956; J2250; J2270; J2405; J2704; J2710; J3010; J3490; J7030; Q0092

== ENCOUNTER 2019-04-26 15:31 | Inpatient (IN) | payer OTHER ==
[~2019-04-26] VITALS: Ht 160 cm; Wt 113.0 kg
[~2019-04-26 15:31] MED LIST: ACET-5629 PO; DOCU-299 PO; ONDA4TAB PO
[2019-04-26 15:32] VITALS: BP 135/88
--- NOTE | 2019-04-26 15:48 | NUR ---
PT AMBULATED TO BED 09
--- NOTE | 2019-04-26 15:50 | NUR ---
33F C/O MILD THROBBING HEADACHE X 1 WK WITH DIZZINESS, PALPITATIONS, SOB WITH LIGHT ACTIVITY. SENSATION OF ROOM SPINNING WHEN PT CHANGES POSITIONS. PRIOR TO THIS PT REPORTS "SHHHH" SOUND IN THE RIGHT EAR WITHOUT PAIN. LUNGS CTAB. SLIGHTLY TACHYCARDIC 109.
--- NOTE | 2019-04-26 15:52 | NUR ---
DR. RODRIGUEZ EVALUATING PT AT BEDSIDE.
--- NOTE | 2019-04-26 15:58 | NUR ---
EMT AT BEDSIDE FOR EKG.
[2019-04-26] MEDS ORDERED: LORazepam 1 MG TAB PO ONE (16:00)
[2019-04-26] MEDS ORDERED: IBUPROFEN 600 MG TAB PO ONE (16:00)
--- NOTE | 2019-04-26 16:05 | NUR ---
DESTINATION SIGN REPAIRER AT BEDSIDE
[2019-04-26 16:27] LABS: BASOPHILS # (AUTO) 0.1 K/uL (0.00-0.22); BASOPHILS % (AUTO) 0.6 % (0.0-2.0); EOSINOPHILS # (AUTO) 0.1 K/uL (0-0.4); EOSINOPHILS % (AUTO) 0.9 % (0.0-4.0); HEMATOCRIT 23.5 % (36-48); LYMPHOCYTES # (AUTO) 2.1 K/uL (2.5-16.5); LYMPHOCYTES % (AUTO) 23.2 % (20.5-51.1); MEAN CORPUSCULAR HEMOGLOBIN 19 pg (27-31); MEAN CORPUSCULAR HGB CONC 29 g/dL (33-37); MEAN CORPUSCULAR VOLUME 64.6 fL (80-94); MONOCYTES # (AUTO) 0.5 K/uL (0.8-1.0); MONOCYTES % (AUTO) 5.5 % (1.7-9.3); NEUTROPHILS # (AUTO) 6.4 K/uL (1.8-7.7); NEUTROPHILS % (AUTO) 69.8 % (42.2-75.2); PLATELET COUNT (AUTO) 468 K/uL (140-450); RED BLOOD CELL COUNT(AUTO) 3.64 MIL/uL (4.20-5.40); RED CELL DISTRIBUTION WIDTH 18.7 % (11.6-13.7); WHITE BLOOD COUNT (AUTO) 9.2 K/uL (4.8-10.8)
[2019-04-26 16:44] LABS: ALBUMIN 3.8 g/dL (3.4-5.0); ANION GAP 15.9 (8-16); CARBON DIOXIDE 25.9 mmol/L (21-32); CREATININE 0.8 mg/dL (0.6-1.3); POTASSIUM 3.8 mmol/L (3.5-5.1); TOTAL BILIRUBIN 0.4 mg/dL (0.0-1.0)
[2019-04-26 16:58] LABS: HEMOGLOBIN 6.9 g/dL (12.0-16.0)
--- NOTE | 2019-04-26 17:19 | NUR ---
NOTIFIED DR. RODRIGUEZ THAT PT WANTS TO SPEAK TO HER ABOUT BLOOD TRANSFUSION.
--- NOTE | 2019-04-26 17:48 | NUR ---
Dr. Zhang evaluating patient at bedside.
--- NOTE | 2019-04-26 18:15 | NUR ---
Patient will be admitted to care of DR. THOMAS. Admited to TELE. Will go to room 111A. Belongings list completed. Report to SUJIT.
[2019-04-26 18:20] VITALS: BP 136/84
--- NOTE | 2019-04-26 18:20 | NUR ---
RECEIVED ENDORSEMENT FROM ED NURSE. PATIENT ARRIVED VIA WHEELCHAIR. AMBULATED TO RESTROOM WITH STEADY GAIT. PATIENT IS AAOX4, PERSIAN SPEAKING. RESPIRATIONS ARE EVEN AND UNLABORED ON ROOM AIR. PATIENT DENIES ANY PAIN AT THIS TIME. RIGHT AC 20G IV INTACT AND SL. MRSA SCREEN DONE. VS OBTAINED. PLAN OF CARE WAS REVIEWED WITH PATIENT, PATIENT VERBALIZED UNDERSTANDING. SAFETY MEASURES IN PLACE, CALL LIGHT WITHIN REACH.
[2019-04-26 18:22] LABS: PROTHROMBIN TIME 9.8 secs (10.8-13.4)
--- NOTE | 2019-04-26 19:10 | NUR ---
ENDORSED TO TRANSPORT TANK TECHNICIAN NURSE HICKEY FOR CONTINUITY OF CARE. PATIENT IS STABLE AT THIS TIME. Addendum: 04/26/19 at 1920 by Jayne Jose RN SETH HICKEY
--- NOTE | 2019-04-26 19:56 | NUR ---
RECEIVED SBAR FROM DAY SHIFT RN FOR CONTINUITY OF CARE. GSC 15 AND ABLE TO MAKE NEEDS KNOWN. DX ANEMIA. BREATH SOUNDS CLEAR UPON AUSCULTATION AND BOWEL SOUNDS ACTIVE. SKIN INTACT. THERE IS A #20 IN THE RAC SALINE LOCKED. SITE IS [facility]. DISCUSSED PLAN OF CARE TO INCLUDE TRANSFUSION OF 2 UNITS PRBC. PATIENT VERBALIZED UNDERSTANDING. NEEDS ATTENDED. HOB AT 30 DEGREES WITH BED IN LOWEST POSITION. CALL LIGHT WITHIN REACH. CONTINUE TO MONITOR PATIENT.
[2019-04-26 20:00] VITALS: BP 110/62
--- NOTE | 2019-04-26 20:01 | NUR ---
PATIENT REQUESTED A SNACK. PROVIDED PATIENT WITH 1 TUNA FISH SANDWICH AND 1 SERVING OF CRANBERRY JUICE. GOOD APPETITE NOTED. NEEDS MET AT THIS TIME. CALL LIGHT WITHIN REACH.
--- NOTE | 2019-04-26 20:23 | NUR ---
ROUNDED ON PATIENT. PATIENT INDEPENDENTLY PERFORMING ORAL CARE. NO SIGNS OF DISTRESS. NEEDS MET AT THIS TIME.
--- NOTE | 2019-04-26 21:03 | NUR ---
CALLED LAB IF BLOOD IS READY OR NOT.BLOOD NOT READY YET.
--- NOTE | 2019-04-26 23:38 | NUR ---
INITIATED 1ST UNIT OF PRBC AT 2315. VSS. NO SIGNS OF DISTRESS NOTED. DENIES PAIN OR DISCOMFORT. CONTINUE TO MONITOR PATIENT.
--- NOTE | 2019-04-26 23:57 | NUR ---
PATIENT REPORTING FEELING ANXIOUS. PAGED DR. THOMAS FOR ORDERS. WILL WAIT FOR CALL BACK.
[2019-04-27] VITALS: BP 117/59
--- NOTE | 2019-04-27 00:11 | NUR ---
RECEIVED CALL BACK FROM DR. THOMAS. NEW ORDERS RECEIVED. ATIVAN 1MG PO Q4H PRN FOR ANXIETY. WILL FOLLOW UP WITH NEW ORDERS.
[2019-04-27] MEDS ORDERED: LORazepam 1 MG TAB PO PRN (00:15)
--- NOTE | 2019-04-27 02:10 | NUR ---
1ST UNIT OF PRBC COMPLETED. VSS. NO SIGNS OF DISTRESS NOTED. BREATHING EVEN AND UNLABORED.
--- NOTE | 2019-04-27 02:30 | NUR ---
SECOND UNIT OF PRBC INITIATED. VS WNL. NO REPORTS OF PAIN OR DISCOMFORT. CONTINUE TO MONITOR PATIENT.
--- NOTE | 2019-04-27 06:15 | NUR ---
2ND UNIT OF PRBC COMPLETED. VSS. NO REPORTS OF PAIN OR DISCOMFORT.
--- NOTE | 2019-04-27 07:11 | NUR ---
ALL PATIENT'S NEEDS ATTENDED TO DURING SHIFT. SBAR GIVEN TO ONCOMING RN. ENDORSED TO RN TO FOLLOW UP WITH LAB TO PERFORM CBC TWO HOURS AFTER COMPLETION OF SECOND UNIT OF PRBC AT 0815.
--- NOTE | 2019-04-27 07:12 | NUR ---
RECEIVED ENDORSEMENT FROM SENIOR REGULATORY AFFAIRS SPECIALIST NURSE. PATIENT IS AAOX4, ALGERIAN SPEAKING. RESPIRATIONS ARE EVEN AND UNLABORED ON ROOM AIR. PATIENT DENIES ANY PAIN AT THIS TIME. RIGHT AC 20G IV INTACT AND SL. PLAN OF CARE WAS REVIEWED WITH PATIENT, PATIENT VERBALIZED UNDERSTANDING. SAFETY MEASURES IN PLACE, CALL LIGHT WITHIN REACH.
[2019-04-27 08:00] VITALS: BP 114/61
--- NOTE | 2019-04-27 08:07 | NUR ---
PATIENT HAS BEEN SCREENED AND CATEGORIZED HIGH NUTRITION RISK. PATIENT WILL BE SEEN WITHIN 1-2 DAYS OF ADMISSION. 04/27/19-04/28/[address]
[2019-04-27 08:43] LABS: BASOPHILS # (AUTO) 0.1 K/uL (0.00-0.22); BASOPHILS % (AUTO) 0.8 % (0.0-2.0); EOSINOPHILS # (AUTO) 0.1 K/uL (0-0.4); EOSINOPHILS % (AUTO) 1.5 % (0.0-4.0); HEMATOCRIT 30.1 % (36-48); HEMOGLOBIN 9.1 g/dL (12.0-16.0); LYMPHOCYTES # (AUTO) 2.1 K/uL (2.5-16.5); LYMPHOCYTES % (AUTO) 29.6 % (20.5-51.1); MEAN CORPUSCULAR HEMOGLOBIN 22 pg (27-31); MEAN CORPUSCULAR HGB CONC 30 g/dL (33-37); MEAN CORPUSCULAR VOLUME 71.1 fL (80-94); MONOCYTES # (AUTO) 0.4 K/uL (0.8-1.0); NEUTROPHILS # (AUTO) 4.5 K/uL (1.8-7.7); NEUTROPHILS % (AUTO) 63.1 % (42.2-75.2); PLATELET COUNT (AUTO) 382 K/uL (140-450); RED BLOOD CELL COUNT(AUTO) 4.23 MIL/uL (4.20-5.40); RED CELL DISTRIBUTION WIDTH 24.5 % (11.6-13.7); WHITE BLOOD COUNT (AUTO) 7.1 K/uL (4.8-10.8)
--- NOTE | 2019-04-27 09:26 | NUR ---
PATIENT RESTING IN BED. DENIES ANY PAIN. NO OTHER NEEDS AT THIS TIME.
[2019-04-27] MEDS ORDERED: FERR-252 PO (11:14)
--- NOTE | 2019-04-27 11:56 | NUR ---
PATIENT SLEEPING, VISIBLE RISE AND FALL OF CHEST. NO OTHER NEEDS AT THIS TIME.
--- NOTE | 2019-04-27 14:30 | NUR ---
DISCHARGE INSTRUCTIONS AND PRESCRIPTION PROVIDED. ALL QUESTIONS AND CONCERNS ADDRESSED. IV REMOVED, CANNULA INTACT, WITH MINIMAL BLEEDING. ID BAND WAS REMOVED. DEPO SHOT WAS GIVEN ORDERED BY DR. CAIN. ID BAND WAS REMOVED. PATIENT AMBULATED OFF UNIT WITH STEADY GAIT, STATED THAT SHE DROVE TO HOSPITAL AND WILL DRIVE HOME. PATIENT IS STABLE AT THIS TIME.
--- NOTE | 2019-04-27 15:12 | NUR ---
contacted patient's pcp at [phone], ABLE TO SPEAK TO NOE REGARDING POST DISCHARGE APPOINTMENT. SHE PROVIDED ME WITH Apr AT 1000. ADDRESS TO THE CLINIC IS [address] [place] [address]. CONTACTED PATIENT AT [phone], NO ANSWER. LEFT MESSAGE.
[2019-04-28] MEDS ORDERED: medroxyPROGESTERone 10 MG TAB PO SCH (09:00)
== END 2019-04-27 14:30 | disposition home or self-care (01) | DRG 532 ==
LOC: MED 15:31 → MTU 17:53
PROVIDERS: ADMIT Internal Medicine Pulmonary Disease; ATTEND Internal Medicine Pulmonary Disease
PROC: 30233N1 Transfusion of Nonautologous Red Blood Cells into Peripheral Vein, Percutaneous Approach (ICD-10-PCS; principal; 2019-04-26)
DX: N92.0 Excessive and frequent menstruation with regular cycle (principal); D62 Acute posthemorrhagic anemia; Z79.899 Other long term (current) drug therapy; Z90.49 Acquired absence of other specified parts of digestive tract
CPT/HCPCS: 36415; 36430; 76856; 80053; 85025; 85610; 86886; 86900; 86901; 86920; 87081; 93005; 99285; J1050; J7030; P9016; Q0092

== ENCOUNTER 2019-06-15 11:02 | Emergency (ER) | payer OTHER ==
[~2019-06-15] VITALS: Ht 160 cm; Wt 114.3 kg
[~2019-06-15 11:02] MED LIST changes: +FERR-252 PO
[2019-06-15 11:09] VITALS: BP 144/89
--- NOTE | 2019-06-15 11:09 | NUR ---
PATIENT AMBULATED TO BED 2.
[2019-06-15] MEDS ORDERED: NACL 0.9% 1,000 ML IV ONE (11:40)
--- NOTE | 2019-06-15 11:41 | NUR ---
PATIENT PRESENTS TO ED WITH C/O VAGINAL BLDG X 2 WEEKS. PT REPORTS CRAMPY LOWER ABDOMINAL PAIN, 6/10 WHICH RADIATES TO HER LOWER BACK AND LEGS. +DIZZINESS, +LIGHTHEADEDNESS, +MOOD SWINGS. PT CONSUMES 10 TAMPONS A DAY. PT WAS ADMITTED LAST MONTH W DIAGNOSIS OF ANEMIA AND WAS TRANSFUSED WITH BLOOD. ULTRASOUND SHOWED NEGATIVE RESULTS. OB HISTORY: . LMP: APR 26, 2019. VSS; PATIENT POSITIONED FOR COMFORT; HOB ELEVATED; BEDRAILS UP X2; BED DOWN. ER MD SAW PT AT BEDSIDE. PMH: ANEMIA, S/P CHOLECYSTECTOMY NKA
[2019-06-15 12:12] LABS: BASOPHILS % (AUTO) 0.6 % (0.0-2.0); EOSINOPHILS # (AUTO) 0.2 K/uL (0-0.4); EOSINOPHILS % (AUTO) 2.8 % (0.0-4.0); HEMATOCRIT 24.3 % (36-48); HEMOGLOBIN 7.4 g/dL (12.0-16.0); LYMPHOCYTES # (AUTO) 2.5 K/uL (2.5-16.5); LYMPHOCYTES % (AUTO) 28.7 % (20.5-51.1); MEAN CORPUSCULAR HEMOGLOBIN 22 pg (27-31); MEAN CORPUSCULAR HGB CONC 31 g/dL (33-37); MONOCYTES # (AUTO) 0.2 K/uL (0.8-1.0); MONOCYTES % (AUTO) 2.9 % (1.7-9.3); NEUTROPHILS # (AUTO) 5.6 K/uL (1.8-7.7); PLATELET COUNT (AUTO) 366 K/uL (140-450); RED BLOOD CELL COUNT(AUTO) 3.42 MIL/uL (4.20-5.40); RED CELL DISTRIBUTION WIDTH 22.1 % (11.6-13.7); WHITE BLOOD COUNT (AUTO) 8.5 K/uL (4.8-10.8)
[2019-06-15 12:25] LABS: ANION GAP 15.6 (8-16); CARBON DIOXIDE 25.2 mmol/L (21-32); CREATININE 0.7 mg/dL (0.6-1.3); POTASSIUM 3.8 mmol/L (3.5-5.1)
[2019-06-15 12:31] LABS: ALBUMIN 3.4 g/dL (3.4-5.0); TOTAL BILIRUBIN 0.2 mg/dL (0.0-1.0)
--- NOTE | 2019-06-15 13:12 | NUR ---
PATIENT UNABLE TO PRODUCE URINE AT THIS TIME.
--- NOTE | 2019-06-15 14:46 | NUR ---
URINE COLLECTED AT THIS TIME.
[2019-06-15 15:34] LABS: APPEARANCE,URINE CLEAR (CLEAR); BILIRUBIN,URINE NEGATIVE (NEGATIVE); BLOOD, URINE 3+ (NEGATIVE); COLOR,URINE YELLOW (YELLOW); LEUKOCYTE ESTERASE ,URINE NEGATIVE (NEGATIVE); NITRITE, URINE NEGATIVE (NEGATIVE); PH,URINE 6.5 (5.0-9.0); UGLUCOSE NEGATIVE (NEGATIVE)
[2019-06-15 15:49] LABS: RBC,URINE TOO NUMEROUS TO COUN /HPF (0-5); WBC,URINE 0-5 /HPF (0-5)
--- NOTE | 2019-06-15 16:00 | NUR ---
PT RESTING IN BED. NO COMPLAINTS AT THIS TIME.
[2019-06-15] MEDS ORDERED: KETOROLAC 15 MG/ML VIAL IVP ONE (16:10)
[2019-06-15] MEDS ORDERED: medroxyPROGESTERone 10 MG TAB PO SCH (17:15)
--- NOTE | 2019-06-15 18:15 | NUR ---
PT SIGNED CONSENT FOR BLOOD TRANFUSION.
--- NOTE | 2019-06-15 19:38 | NUR ---
PT SITTING IN BED. REPORT GIVEN TO PAYAL LANIER. ALL CARE TRANSFERRED AT THIS TIME.
--- NOTE | 2019-06-15 19:43 | NUR ---
Consent signed per Swati Herzog agreeing to administration of blood. Blood has been type and crossmatched. Blood sent from blood bank. Information on unit of blood checked against patient wristband at bedside by two nurses. All information matches. Patient or responsible libertarian informed of potential complications associated with blood transfusion. Informed of possible transfusion reaction symptoms. Aware of need to notify nurse at once of itching, shortness of breath, flushing, feeling of impending doom, or other symptoms not previously present. Vital signs taken within 5 minutes prior to initiation of transfusion. RN will remain with patient for first 15 minutes of transfusion at which time vital signs will be re-assessed.
--- NOTE | 2019-06-15 19:45 | NUR ---
Note jossyone in EDM - 06/15/19 at 1950 by MEDLA2 BLOOD TRANSFUSION INITIATED. VSS. ORAL TEMPERATURE 98.4, O2 SATURATION 95%, HR 105, BP 128/83, R 14. PT MADE AWARE OF COMPLICATIONS. PER PT THIS IS HER SECOND BLOOD TRANSFUSION.
--- NOTE | 2019-06-15 19:49 | NUR ---
INITIAL VITAL SIGNS TAKEN: ORAL TEMPERATURE 98.4, O2 SATURATION 95%, HR 105, BP 128/83, R 14. PT MADE AWARE OF COMPLICATIONS. PER PT THIS IS HER SECOND BLOOD TRANSFUSION.
--- NOTE | 2019-06-15 19:54 | NUR ---
BLOOD TRANSFUSION INITIATED
--- NOTE | 2019-06-15 20:03 | NUR ---
PT AWAKE AND ALERT ON CELL PHONE. PT DENIES SHORTNESS OF BREATH, FLUSHING, OR ANY ITCHING AT THIS TIME. WILL CONTINUE TO MONITOR.
--- NOTE | 2019-06-15 20:23 | NUR ---
PT RESTING IN BED. VSS. NO ADVERSE REACTIONS NOTED. WILL CONTINUE TO MONITOR.
--- NOTE | 2019-06-15 21:00 | NUR ---
PT RESTING IN BED. VSS. PT AWAKE AND COMFORTABLE. NO COMPLAINTS AT THIS TIME. WILL CONTINUE TO MONITOR.
--- NOTE | 2019-06-15 21:45 | NUR ---
PT RESTING IN BED WITH EYES CLOSED, EASILY ARROUSABLE. VSS. WILL CONTINUE TO MONITOR.
--- NOTE | 2019-06-15 22:20 | NUR ---
PT BLOOD TRANSFUSION COMPLETED AT 2220. NO ADVERSE REACTIONS NOTED. PT TOLERATED TRANSFUSION WELL. VSS. WILL CONTINUE TO MONITOR.
--- NOTE | 2019-06-15 22:50 | NUR ---
PT AWAKE AND ALERT. VSS READY FOR DISCHARGE.
[2019-06-15 23:00] VITALS: BP 121/64
--- NOTE | 2019-06-15 23:00 | NUR ---
Patient discharged with v/s stable. Written and verbal after care instructions given and explained. Pt encouraged to follow up with PCP in 1-2 days. Per pt, PCP already set up appointments for pt to be seen. Patient alert, oriented and verbalized understanding of instructions. Ambulatory with steady gait. All questions addressed prior to discharge. ID band removed. Patient advised to follow up with PMD. Rx of PROVERA 10MG TAB WAS given. Patient educated on indication of medication including possible reaction and side effects. Opportunity to ask questions provided and answered.
[2019-06-16] MEDS ORDERED: medroxyPROGESTERone 10 MG TAB PO SCH (09:00)
== END 2019-06-15 23:00 | disposition home or self-care (01) ==
LOC: MED 11:02
DX: N93.8 Other specified abnormal uterine and vaginal bleeding (principal); R11.0 Nausea; R42 Dizziness and giddiness; D64.9 Anemia, unspecified; Z90.49 Acquired absence of other specified parts of digestive tract; Z79.899 Other long term (current) drug therapy
CPT/HCPCS: 36415; 76856; 80053; 81001; 84702; 85025; 86886; 86900; 86901; 86920; 93976; 96361; 96374; 99284; J1885; P9016; Q0092; J7030